=== PATIENT | male | born 1980 | race Caucasian/White ===

== ENCOUNTER 2018-08-11 14:24 | Emergency (ER) | payer BC, OTHER ==
[~2018-08-11] VITALS: Ht 193 cm; Wt 129.3 kg
[2018-08-11 15:30] VITALS: BP 150/79
[2018-08-11] MEDS ORDERED: ONDA4TAB7 PO (15:43)
--- NOTE | 2018-08-11 15:44 | PHYS DOC ---
Past Medical History Past Medical History: Asthma Past Surgical History: No Surgical History Alcohol Use: None Drug Use: None Adult General Chief Complaint Chief Complaint: NAUSEA/VOMITING/DIARRHA HPI HPI Patient is a 38 year old M who presents with n/v since this am. Patient reports he vomited several times this am that had streaks of blood. He was concerned about the blood. He reports he did eat a sandwich prior to arrival which he kept down. Review of Systems Review of Systems Constitutional: Denies fever or chills [] HENT: Reports nasal congestion Respiratory: Denies cough or shortness of breath [] Cardiovascular: No additional information not addressed in HPI [] GI: Reports nausea and vomiting. Denies abdominal pain, diarrhea [] Neurologic: Denies headache, focal weakness or sensory changes [] All other systems were reviewed and found to be within normal limits, except as documented in this note. Allergies Allergies Allergies Coded Allergies Type Severity Reaction Last Updated Verified Penicillins Allergy Unknown 12/26/14 Yes Physical Exam Physical Exam Constitutional: Well developed, well nourished, no acute distress, non-toxic appearance. [] HENT: Normocephalic, atraumatic, oropharynx moist Eyes: PERRLA, EOMI, conjunctiva normal, no discharge. [] Neck: Normal range of motion, no tenderness, supple, no stridor. [] Cardiovascular:Heart rate regular rhythm, no murmur [] Lungs & Thorax: Bilateral breath sounds clear to auscultation [] Abdomen: Bowel sounds normal, soft, no tenderness Skin: Warm, dry, no erythema, no rash. [] Extremities: No tenderness, ROM intact, no edema. [] Neurologic: Alert and oriented X 3, normal motor function, normal sensory function, no focal deficits noted. [] Psychologic: Affect normal, judgement normal, mood normal. [] Current Patient Data Vital Signs Vital Signs Date Time Temp Pulse Resp B/P (MAP) Pulse Ox O2 Delivery O2 Flow Rate FiO2 08/11/18 15:30 98.3 104 18 150/79 (102) 98 Room Air 98.3 EKG EKG [] Radiology/Procedures Radiology/Procedures [] Course & Med Decision Making Course & Med Decision Making Pertinent Labs and Imaging studies reviewed. (See chart for details) Plan: Push fluids, Zofran Rx, note for work, follow up with PCP, return precautions reviewed[] Dragon Disclaimer Dragon Disclaimer This electronic medical record was generated, in whole or in part, using a voice recognition dictation system. Departure Departure Impression: Primary Impression: Gastritis Disposition: 01 HOME, SELF-CARE Condition: GOOD Referrals: USMAN REYEZ MD (PCP) Patient Instructions: Nausea and Vomiting Additional Instructions: [place] diet, drink plenty of fluids, follow up with PCP, return to ER if coffee ground looking emesis or bleeding increases Scripts Ondansetron Hcl (ZOFRAN) 4 Mg Tablet 1 TAB PO Q6HRS, #20 TAB Prov: GLENIS JAVED [employer] 08/11/18 Problem Qualifiers Primary Impression: Gastritis Gastritis type: unspecified gastritis Chronicity: acute Gastritis bleeding : without bleeding Qualified Codes: K29.00 - Acute gastritis without bleeding GLENIS JAVED [employer] OPER[employer] Aug 11, 2018 15:44
== END 2018-08-11 16:54 | disposition home or self-care (01) ==
LOC: ER 14:24
DX: K29.00 Acute gastritis without bleeding (principal); J45.909 Unspecified asthma, uncomplicated; Z88.0 Allergy status to penicillin
CPT/HCPCS: 99283